=== PATIENT | female | born 1970 | race Caucasian/White ===

== ENCOUNTER 2018-11-12 09:07 | Outpatient (CLI) | payer OTHER | END 2018-11-12 23:59 | disposition home or self-care (01) | LOC: CARD 09:07 | PROVIDERS: ATTEND Psychiatry & Neurology Neurology | DX: G40.209 Localization-related (focal) (partial) symptomatic epilepsy and epileptic syndromes with complex partial seizures, not intractable, without status epilepticus (principal) | CPT/HCPCS: 95819 ==

== ENCOUNTER 2018-11-12 12:55 | Outpatient (CLI) | payer OTHER | END 2018-11-12 23:59 | disposition home or self-care (01) | LOC: CFH 12:55 | PROVIDERS: ATTEND Psychiatry & Neurology Neurology | DX: G40.909 Epilepsy, unspecified, not intractable, without status epilepticus (principal) | CPT/HCPCS: 70553; A9585 ==

== ENCOUNTER → 2019-04-16 | Outpatient (CLI) | payer OTHER ==
[~2019-04-16] MED LIST: GADOTERATE 10 MMOL/20 ML SYR ONE
== END | disposition home or self-care (01) ==
LOC: CARD 08:29
PROVIDERS: ATTEND Psychiatry & Neurology Neurology
DX: G04.81 Other encephalitis and encephalomyelitis (principal); G40.209 Localization-related (focal) (partial) symptomatic epilepsy and epileptic syndromes with complex partial seizures, not intractable, without status epilepticus; J34.89 Other specified disorders of nose and nasal sinuses
CPT/HCPCS: 70553; 95819; A9575